=== PATIENT | female | born 1975 | race Caucasian/White ===

== ENCOUNTER 2021-10-17 12:37 | Emergency (ER) | payer SELFPAY ==
[2021-10-17 14:49] LABS: SARS-COV-2 RT PCR NEGATIVE (NEGATIVE)
--- NOTE | 2021-10-17 15:00 | EDPHYS ---
Physician Documentation [facility] Name: Cari Chen Age: 46 yrs Sex: Female : 1975 Arrival Date: 10/17/2021 Time: 12:40 Bed Waiting Private MD: ED Physician José Manuel Perez HPI: 10/17 15:24 This 46 yrs old Female presents to ER via Ambulatory with complaints of Chest kb Congestion, Breathing Difficulty. 15:24 The patient or guardian reports cough, that is intermittent, described as moderate, kb with no sputum. The patient has not experienced similar symptoms in the past. The patient has not recently seen a physician. 15:25 Onset: The symptoms/episode began/occurred 4 day(s) ago. Modifying factors: The kb symptoms are alleviated by nothing. the symptoms are aggravated by nothing. Associated signs and symptoms: Pertinent positives: rhinorrhea, Pertinent negatives: chest pain, diarrhea, ear ache, fever, nausea, sore throat, vomiting. Severity of symptoms: At their worst the symptoms were moderate in the emergency department the symptoms are unchanged. 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 Flu vaccine status is unknown. - Social history:: Smoking status: Patient denies any tobacco usage or history of. ROS: 15:14 Constitutional: Negative for fever, chills, and weight loss. kb 15:14 Respiratory: Positive for cough, Negative for dyspnea on exertion, hemoptysis, orthopnea, pleurisy, shortness of breath, sputum production, wheezing, acute changes. 15:14 All other systems are negative. 15:17 ENT: Positive for rhinorrhea. kb Exam: 15:17 Constitutional: This is a well developed, well nourished patient who is awake, alert, kb and in no acute distress. Head/Face: Normocephalic, atraumatic. ENT: Moist Mucous membranes Cardiovascular: Regular rate and rhythm with a normal S1 and S2. No gallops, murmurs, or rubs. No pulse deficits. Respiratory: Respirations even and unlabored. No increased work of breathing. Talking in full sentences Skin: Warm, dry with normal turgor. Normal color. MS/ Extremity: Pulses equal, no cyanosis. Neurovascular intact. Full, normal range of motion. Neuro: Awake and alert, GCS 15, oriented to person, place, time, and situation. Moves all extremities. Normal gait. Psych: Awake, alert, with orientation to person, place and time. Behavior, mood, and affect are within normal limits. Vital Signs: 13:42 BP 133 / 94; Pulse 84; Resp 18; Temp 97.7; Pulse Ox 100% ; Weight 90.72 kg; Height 5 ll1 ft. 7 in. (170.18 cm); Pain 6/10; 13:42 Body Mass Index 31.32 (90.72 kg, 170.18 cm) ll1 MDM: 13:48 Patient medically screened. kb 15:14 Data reviewed: vital signs, nurses notes. Data interpreted: Pulse oximetry: on room air kb is 100 %. Interpretation: normal. Counseling: I had a detailed discussion with the patient and/or guardian regarding: the historical points, exam findings, and any diagnostic results supporting the discharge/admit diagnosis, lab results, the need for outpatient follow up, a family practitioner, to return to the emergency department if symptoms worsen or persist or if there are any questions or concerns that arise at home. 10/17 13:46 Order name: COVID-19/FLU A+B (Document "Date of Onset" if Symptomatic); Complete Time: ll1 14:50 Administered Medications: No medications were administered Disposition Summary: 10/17/21 15:00 Discharge Ordered Location: Home kb Condition: Stable kb Diagnosis - Acute upper respiratory infection, unspecified kb Followup: kb - With: Emergency Department - When: As needed - Reason: Worsening of condition Followup: kb - With: Private Physician - When: 2 - 3 days - Reason: Recheck today's complaints, Continuance of care, Re-evaluation by your physician Discharge Instructions: - Discharge Summary Sheet kb - Upper Respiratory Infection, Adult, [id number] kb - Viral Respiratory Infection, [id number] kb Forms: - Medication Reconciliation Form kb - Thank You Letter kb - Antibiotic Education kb - Prescription Opioid Use kb - Work release form ll1 Prescriptions: - Prednisone 20 mg Oral Tablet - take 1 tablet by ORAL route once daily for 5 days; 5 tablet; Refills: 0, kb Product Selection Permitted - Tessalon Perles 100 mg Oral Capsule - take 1 capsule by ORAL route every 8 hours As needed; 15 capsule; Refills: 0, kb Product Selection Permitted Signatures: Dispatcher [employer] Landy Elise, TRAY FILLER-C TRAY FILLER-Matthew Negron, RN RN ll1
--- NOTE | 2021-10-17 15:00 | ER ---
Nurse's Notes [facility] Name: Cari Chen Age: 46 yrs Sex: Female : 1975 Arrival Date: 10/17/2021 Time: 12:40 Bed Waiting Private MD: Diagnosis: Acute upper respiratory infection, unspecified Presentation: 10/17 13:42 Chief complaint: Patient states: Cough, chest congestion, SOB for 4 days. No known ll1 fever. Coronavirus screen: Vaccine status: Patient reports being unvaccinated. Client denies travel out of the [place] in the last 14 days. cough unrelated to allergies, headache, Client presents with at least one sign or symptom that may indicate coronavirus-19. Standard/surgical mask placed on the client. Ebola Screen: Patient denies travel to an Ebola-affected area in the 21 days before illness onset. Initial Sepsis Screen: Does the patient meet any 2 criteria? No. Patient's initial sepsis screen is negative. Does the patient have a suspected source of infection? Yes: Productive cough/pneumonia. Risk Assessment: Do you want to hurt yourself or someone else? Patient reports no desire to harm self or others. Onset of symptoms was October 14, 2021. 13:42 Method Of Arrival: Ambulatory ll1 13:42 Acuity: VALERIE 3 ll1 Triage Assessment: 13:45 General: Appears ill, Behavior is calm, cooperative, appropriate for age. Pain: Denies ll1 pain. Neuro: No deficits noted. Cardiovascular: No deficits noted. Respiratory: Reports shortness of breath cough that is Airway is patent Trachea midline Respiratory effort is even, unlabored, Respiratory pattern is regular, symmetrical, Breath sounds are clear bilaterally. Onset: The symptoms/episode began/occurred yesterday, the patient has mild shortness of breath. 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 Flu vaccine status is unknown. - Social history:: Smoking status: Patient denies any tobacco usage or history of. Screenin:45 Abuse screen: Denies threats or abuse. Nutritional screening: No deficits noted. ll1 Tuberculosis screening: No symptoms or risk factors identified. Fall Risk Total Disla Fall Scale indicates No Risk (0-24 pts). Assessment: 14:45 Reassessment: No changes from previously documented assessment. Patient and/or family ll1 updated on plan of care and expected duration. Pain level reassessed. Patient is alert, oriented x 3, equal unlabored respirations, skin warm/dry/pink. Cardiovascular: Rhythm is regular. Respiratory: Airway is patent Respiratory effort is even, unlabored, Breath sounds are clear bilaterally. Vital Signs: 13:42 BP 133 / 94; Pulse 84; Resp 18; Temp 97.7; Pulse Ox 100% ; Weight 90.72 kg; Height 5 ll1 ft. 7 in. (170.18 cm); Pain 6/10; 13:42 Body Mass Index 31.32 (90.72 kg, 170.18 cm) ll1 ED Course: 12:40 Patient arrived in ED. ds1 13:44 Triage completed. ll1 13:44 Arm band placed on. ll1 13:45 Patient has correct armband on for positive identification. Cardiac monitoring not ll1 applicable on this patient. 13:45 No provider procedures requiring assistance completed. Patient did not have IV access ll1 during this emergency room visit. 13:47 Landy Mcfadden FNP-C is [facility]. kb 13:47 José Manuel Perez MD is Attending Physician. kb Administered Medications: No medications were administered Outcome: 15:00 Discharge ordered by . kb 15:15 Patient left the ED. ll1 15:15 Discharged to home ambulatory. ll1 15:15 Condition: stable 15:15 Discharge instructions given to patient, Instructed on discharge instructions, follow up and referral plans. medication usage, Demonstrated understanding of instructions, follow-up care, medications, Prescriptions given X 2. Signatures: Landy Mcfadden FNP-C BEVELER-Michelle Schwarz ds1 Matthew sU RN RN ll1
[2021-10-17 15:20] VITALS: BP 133/94; TEMP 97.7; O2SAT 100
== END 2021-10-17 15:15 | disposition home or self-care (01) ==
LOC: ER 12:37
DX: J06.9 Acute upper respiratory infection, unspecified (principal); Z20.822 Contact with and (suspected) exposure to COVID-19
CPT/HCPCS: 0240U; 99282

== ENCOUNTER 2021-10-23 11:04 | Emergency (ER) | payer SELFPAY ==
--- NOTE | 2021-10-23 14:06 | RAD REPORT ---
EXAM DESCRIPTION: RAD - Chest Single View - 10/23/2021 11:58 am CLINICAL HISTORY: COUGH, congestion COMPARISON: February 2016 TECHNIQUE: AP portable chest image was obtained 10/23/2021 11:58 am . FINDINGS: Lung volumes are low. Minimal stranding at the left base is more likely atelectasis than i nfiltrate. No failure or volume overload. Heart and vasculature are normal. No measurable pleural effusion and no pneumothorax. No acute bony abnormality seen. No acute aortic findings suspected. IMPRESSION: Limited study without acute cardiopulmonary finding. Left base stranding favored to be atelectasis rather than infiltrate.
--- NOTE | 2021-10-23 14:42 | EDPHYS ---
Physician Documentation [facility] Name: Cari Chen Age: 46 yrs Sex: Female : 1975 Arrival Date: 10/23/2021 Time: 11:11 Bed Treatment Private MD: ED Physician Roger Sotomayor HPI: 10/23 14:40 This 46 yrs old Female presents to ER via Ambulatory with complaints of Cough and pm1 Shortness Of Breath. 14:40 The patient or guardian reports cough. Onset: The symptoms/episode began/occurred 1 pm1 week(s) ago. Severity of symptoms: in the emergency department the symptoms are unchanged. Modifying factors: The symptoms are alleviated by nothing, the symptoms are aggravated by nothing. Associated signs and symptoms: Pertinent negatives: chest pain, diarrhea, fever, sore throat, vomiting. The patient has not experienced similar symptoms in the past. The patient has been recently seen at the [facility] Emergency Department, last week, for similar complaints labs were performed, given steroid treatment. 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 - Social history:: Smoking status: Patient denies any tobacco usage or history of. ROS: 14:40 Constitutional: Negative for fever, chills, and weight loss, ENT: Negative for injury, pm1 pain, and discharge, Cardiovascular: Negative for chest pain, palpitations, and edema. 14:40 Abdomen/GI: Negative for abdominal pain, nausea, vomiting, diarrhea, and constipation, Back: Negative for injury and pain, MS/Extremity: Negative for injury and deformity, Skin: Negative for injury, rash, and discoloration. 14:40 Respiratory: Positive for cough, shortness of breath. 14:40 Neuro: Positive for headache. 14:40 All other systems are negative. Exam: 14:40 Constitutional: This is a well developed, well nourished patient who is awake, alert, pm1 and in no acute distress. Head/Face: Normocephalic, atraumatic. 14:40 Cardiovascular: Regular rate and rhythm with a normal S1 and S2. No gallops, murmurs, or rubs. Normal PMI, no JVD. No pulse deficits. Respiratory: Lungs have equal breath sounds bilaterally, clear to auscultation and percussion. No rales, rhonchi or wheezes noted. No increased work of breathing, no retractions or nasal flaring. 14:40 Back: No spinal tenderness. No costovertebral tenderness. Full range of motion. Skin: Warm, dry with normal turgor. Normal color with no rashes, no lesions, and no evidence of cellulitis. MS/ Extremity: Pulses equal, no cyanosis. Neurovascular intact. Full, normal range of motion. 14:40 Eyes: Exam is negative for acute changes, Periorbital structures: appear normal, Pupils: no acute changes, Extraocular movements: no acute changes, Conjunctiva: no acute changes, no injection. 14:40 Abdomen/GI: Exam negative for acute changes, Inspection: abdomen appears normal, Palpation: abdomen is soft and non-tender, in all quadrants. 14:40 Neuro: Exam negative for acute changes, Orientation: is normal, Mentation: is normal, Motor: is normal, moves all fours. Vital Signs: 11:42 BP 148 / 82; Pulse 87; Resp 16; Temp 98.6; Pulse Ox 100% on R/A; Weight 90.72 kg; iw Height 5 ft. 7 in. (170.18 cm); 15:44 BP 138 / 79; Pulse 77; Resp 18 S; Pulse Ox 98% on R/A; al4 11:42 Body Mass Index 31.32 (90.72 kg, 170.18 cm) MDM: 13:49 Patient medically screened. [facility] 14:40 Data reviewed: vital signs. Data interpreted: Pulse oximetry: on room air is 100 %. pm1 Interpretation: normal. Counseling: I had a detailed discussion with the patient and/or guardian regarding: the historical points, exam findings, and any diagnostic results supporting the discharge/admit diagnosis, radiology results, the need for outpatient follow up, to return to the emergency department if symptoms worsen or persist or if there are any questions or concerns that arise at home. 10/23 11:44 Order name: CXR XRAY; Complete Time: 14:14 iw Administered Medications: No medications were administered Disposition: 10/24 04:38 Co-signature as Attending Physician, Roger Sotomayor MD I agree with the assessment and izabel plan of care. Disposition Summary: 10/23/21 14:41 Discharge Ordered Location: Home pm1 Problem: new pm1 Symptoms: have improved pm1 Condition: Stable pm1 Diagnosis - Acute upper respiratory infection, unspecified pm1 Followup: pm1 - With: Emergency Department - When: As needed - Reason: Worsening of condition Followup: pm1 - With: Private Physician - When: 2 - 3 days - Reason: Recheck today's complaints, Continuance of care, Re-evaluation by your physician Discharge Instructions: - Discharge Summary Sheet pm1 - Upper Respiratory Infection, Adult pm1 Forms: - Medication Reconciliation Form pm1 - Thank You Letter pm1 - Antibiotic Education pm1 - Prescription Opioid Use pm1 Prescriptions: - Ventolin HFA 90 mcg/actuation Inhalation HFA aerosol inhaler - inhale 1 puff by INHALATION route every 4-6 hours As needed; 1 Inhaler; pm1 Refills: 0, Product Selection Permitted - Medrol (Gurdeep) 4 mg Oral Tablets, Dose Pack - take 1 tablet by ORAL route as directed - follow package instructions; 1 pm1 packet; Refills: 0, Product Selection Permitted - Guaifenesin AC 10-100 mg/5 mL Oral Liquid - take 10 milliliters by ORAL route every 4 hours As needed; 240 milliliter; pm1 Refills: 0, Product Selection Permitted Signatures: Dispatcher [employer] Roger Bishop MD MD cha Williams, Irene, RN RN Emmanuel Urban, PAZ PAGE TECHNICIAN pm1
--- NOTE | 2021-10-23 14:42 | ER ---
Nurse's Notes [facility] Name: Cari Chen Age: 46 yrs Sex: Female : 1975 Arrival Date: 10/23/2021 Time: 11:11 Bed Treatment Private MD: Diagnosis: Acute upper respiratory infection, unspecified Presentation: 10/23 11:42 Chief complaint: Patient states: was seen here the day after Elissa, was diagnosed iw with URI, has been taking prednisone , still has a cough and headache. Coronavirus screen: Client presents with at least one sign or symptom that may indicate coronavirus-19. Ebola Screen: Patient negative for fever greater than or equal to 101.5 degrees Fahrenheit, and additional compatible Ebola Virus Disease symptoms Patient denies exposure to infectious person. Patient denies travel to an Ebola-affected area in the 21 days before illness onset. No symptoms or risks identified at this time. Initial Sepsis Screen: Does the patient meet any 2 criteria? No. Patient's initial sepsis screen is negative. Does the patient have a suspected source of infection? No. Patient's initial sepsis screen is negative. Risk Assessment: Do you want to hurt yourself or someone else? Patient reports no desire to harm self or others. Onset of symptoms was October 15, 2021. 11:42 Method Of Arrival: Ambulatory iw 11:42 Acuity: VALERIE 3 iw GLOVE BRUSHER: 15:44 unknown al4 Historical: - Allergies: 11:43 No Known Allergies; iw - Home Meds: 11:43 None [Active]; iw - PMHx: 11:43 None; iw - PSHx: 11:43 None; iw - Immunization history:: Client reports having NOT received the Covid vaccine. - Social history:: Smoking status: Patient denies any tobacco usage or history of. Screenin:43 Abuse screen: Denies threats or abuse. Nutritional screening: No deficits noted. al4 Tuberculosis screening: No symptoms or risk factors identified. Fall Risk None identified. Assessment: 15:41 General: Appears in no apparent distress. comfortable, Behavior is calm, cooperative, al4 patient complains of pain 8/10 in chest "from coughing" and left side behind ear also "from coughing." Patient denies SOB, head congestion, and n/v/d. Pain: Pain currently is 8 out of 10 on a pain scale. Neuro: Level of Consciousness is awake, alert, obeys commands, Oriented to person, place, time. Cardiovascular: Capillary refill < 3 seconds Patient's skin is warm and dry. Respiratory: Airway is patent Respiratory effort is even, unlabored, Respiratory pattern is regular, symmetrical. GI: No signs and/or symptoms were reported involving the gastrointestinal system. : No signs and/or symptoms were reported regarding the genitourinary system. EENT: No signs and/or symptoms were reported regarding the EENT system. Derm: No signs and/or symptoms reported regarding the dermatologic system. Musculoskeletal: No signs and/or symptoms reported regarding the musculoskeletal system. Vital Signs: 11:42 BP 148 / 82; Pulse 87; Resp 16; Temp 98.6; Pulse Ox 100% on R/A; Weight 90.72 kg; iw Height 5 ft. 7 in. (170.18 cm); 15:44 BP 138 / 79; Pulse 77; Resp 18 S; Pulse Ox 98% on R/A; al4 11:42 Body Mass Index 31.32 (90.72 kg, 170.18 cm) ED Course: 11:11 Patient arrived in ED. ds1 11:43 Triage completed. iw 11:44 Arm band placed on. EKG completed in triage. Results shown to MD. iw 11:54 X-ray completed. Portable x-ray completed in exam room. ls3 11:58 CXR XRAY In Process Unspecified. EDMS 13:48 Emmanuel Hwang NP is PHCP. pm1 13:48 Roger Sotomayor MD is Attending Physician. pm1 14:08 Rosita Carter RN is Primary Nurse. iw 15:43 Patient has correct armband on for positive identification. al4 15:43 No provider procedures requiring assistance completed. Patient did not have IV access al4 during this emergency room visit. Administered Medications: No medications were administered Outcome: 14:41 Discharge ordered by MD. pm1 15:43 Discharged to home ambulatory. al4 15:43 Condition: stable 15:43 Discharge instructions given to patient. 15:51 Patient left the ED. al4 Signatures: Dispatcher [employer] [facility] LeeEliudi ds1 Rosita Carter RN RN iw Emmanuel Hwang NP HOUSE PIPING INSPECTOR pm1 Wendy Ding ls3 Hero, Winston al4
[2021-10-23 15:55] VITALS: TEMP 98.6
[2021-10-23 15:57] VITALS: BP 138/79; O2SAT 98
== END 2021-10-23 15:51 | disposition home or self-care (01) ==
LOC: ER 11:04
DX: J06.9 Acute upper respiratory infection, unspecified (principal)
CPT/HCPCS: 71045; 99283

== ENCOUNTER 2021-12-01 10:57 | Emergency (ER) | payer SELFPAY ==
[2021-12-01 12:29] LABS: SARS-COV-2 RT PCR POSITIVE (NEGATIVE)
--- NOTE | 2021-12-01 12:33 | EDPHYS ---
Physician Documentation [facility] Name: Cari Chen Age: 46 yrs Sex: Female : 1975 Arrival Date: 12/01/2021 Time: 10:58 Bed 11 Private MD: ED Physician Roger Sotomayor HPI: 12/01 12:01 This 46 yrs old Female presents to ER via Ambulatory with complaints of Fever, Sore kb Throat, bodyaches. 12:01 The patient or guardian reports cough, that is intermittent, described as mild, flu kb symptoms, low-grade fever, myalgias. Onset: The symptoms/episode began/occurred 3 day(s) ago. Severity of symptoms: At their worst the symptoms were moderate, in the emergency department the symptoms are unchanged. Modifying factors: The symptoms are alleviated by nothing, the symptoms are aggravated by nothing. Associated signs and symptoms: Pertinent positives: fever, sore throat. The patient has not experienced similar symptoms in the past. The patient has not recently seen a physician. 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 - Social history:: Smoking status: Patient denies any tobacco usage or history of. ROS: 12:00 Cardiovascular: Negative for chest pain, palpitations, and edema. kb 12:00 Constitutional: Positive for body aches, chills, fatigue, fever, malaise. 12:00 ENT: Positive for sinus congestion, sore throat. 12:00 Respiratory: Positive for cough, Negative for dyspnea on exertion, hemoptysis, orthopnea, pleurisy, shortness of breath, sputum production, wheezing. 12:00 All other systems are negative. Exam: 12:00 Constitutional: This is a well developed, well nourished patient who is awake, alert, kb and in no acute distress. Head/Face: Normocephalic, atraumatic. ENT: Moist Mucous membranes Respiratory: Respirations even and unlabored. No increased work of breathing. Talking in full sentences Skin: Warm, dry with normal turgor. Normal color. MS/ Extremity: Pulses equal, no cyanosis. Neurovascular intact. Full, normal range of motion. Neuro: Awake and alert, GCS 15, oriented to person, place, time, and situation. Moves all extremities. Normal gait. Psych: Awake, alert, with orientation to person, place and time. Behavior, mood, and affect are within normal limits. Vital Signs: 11:03 BP 125 / 89; Pulse 87; Resp 17; Temp 98.7; Pulse Ox 98% ; Weight 90.72 kg; Height 5 ft. vg1 7 in. (170.18 cm); Pain 5/10; 12:41 BP 121 / 73; Pulse 79; Resp 16; Pulse Ox 99% on R/A; ab2 11:03 Body Mass Index 31.32 (90.72 kg, 170.18 cm) vg1 MDM: 11:00 Patient medically screened. kb 12:00 Data reviewed: vital signs, nurses notes. Data interpreted: Pulse oximetry: on room air kb is 98 %. Interpretation: normal. 12:32 Counseling: I had a detailed discussion with the patient and/or guardian regarding: the kb historical points, exam findings, and any diagnostic results supporting the discharge/admit diagnosis, lab results, radiology results, the need for outpatient follow up, a family practitioner, to return to the emergency department if symptoms worsen or persist or if there are any questions or concerns that arise at home. 12/01 11:00 Order name: Strep; Complete Time: 12:06 kb 12/01 11:00 Order name: COVID-19/FLU A+B (Document "Date of Onset" if Symptomatic); Complete Time: kb 12:29 12/01 12:05 Order name: Throat Culture EDMS Administered Medications: No medications were administered Disposition: 15:44 Co-signature as Attending Physician, Roger Sotomayor MD I agree with the assessment and izabel plan of care. Disposition Summary: 12/01/21 12:32 Discharge Ordered Location: Home Condition: Stable kb Diagnosis - Coronavirus infection, unspecified kb Followup: kb - With: Emergency Department - When: As needed - Reason: Worsening of condition Followup: kb - With: Private Physician - When: 2 - 3 days - Reason: Recheck today's complaints, Continuance of care, Re-evaluation by your physician Discharge Instructions: - Discharge Summary Sheet kb - Viral Respiratory Infection, [id number] kb - COVID-19 kb Forms: - Medication Reconciliation Form kb - Thank You Letter kb - Antibiotic Education kb - Prescription Opioid Use kb Signatures: Dispatcher [employer] Landy Elise, TITLE ASSISTANT-C KATHI-Roger Marrufo MD MD cha Garcia, Victoria, RN RN vg1
--- NOTE | 2021-12-01 12:33 | ER ---
Nurse's Notes [facility] Name: Cari Chen Age: 46 yrs Sex: Female : 1975 Arrival Date: 12/01/2021 Time: 10:58 Bed 11 Private MD: Diagnosis: Coronavirus infection, unspecified Presentation: 12/01 11:03 Chief complaint: Patient states: fever yesterday of 102., cough, congestion, body aches vg1 and sore throat since x 2 days. Coronavirus screen: Vaccine status: Patient reports being unvaccinated. Client denies travel out of the [place] in the last 14 days. Ebola Screen: Patient negative for fever greater than or equal to 101.5 degrees Fahrenheit, and additional compatible Ebola Virus Disease symptoms. Initial Sepsis Screen: Does the patient meet any 2 criteria? No. Patient's initial sepsis screen is negative. Does the patient have a suspected source of infection? No. Patient's initial sepsis screen is negative. Risk Assessment: Do you want to hurt yourself or someone else? Patient reports no desire to harm self or others. Onset of symptoms was November 29, 2021. 11:03 Method Of Arrival: Ambulatory vg1 11:03 Acuity: VALERIE 4 vg1 Triage Assessment: 11:06 General: Appears uncomfortable, Behavior is calm, cooperative. Pain: Complains of pain vg1 in generalized body Pain currently is 5 out of 10 on a pain scale. EENT: Throat is clear. 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 - Social history:: Smoking status: Patient denies any tobacco usage or history of. Screenin:20 Abuse screen: Denies threats or abuse. Denies injuries from another. Nutritional ab2 screening: No deficits noted. Tuberculosis screening: No symptoms or risk factors identified. Fall Risk None identified. Assessment: 11:19 General: Appears in no apparent distress. comfortable, Behavior is calm, cooperative, ab2 appropriate for age. Pain: Complains of pain in full body aches Pain does not radiate. Neuro: No deficits noted. Level of Consciousness is awake, alert, obeys commands, Oriented to person, place, time, situation, Appropriate for age Cryptoanalysis Teacher are equal bilaterally Moves all extremities. Gait is steady, Speech is normal, Facial symmetry appears normal. Cardiovascular: No deficits noted. Denies chest pain, Heart tones S1 S2 present Patient's skin is warm and dry. Respiratory: Reports cough that is Airway is patent Respiratory effort is even, unlabored, Respiratory pattern is regular, symmetrical, Breath sounds are clear bilaterally. GI: No deficits noted. No signs and/or symptoms were reported involving the gastrointestinal system. Abdomen is round non-distended. : No deficits noted. No signs and/or symptoms were reported regarding the genitourinary system. EENT: No deficits noted. No signs and/or symptoms were reported regarding the EENT system. Derm: No deficits noted. No signs and/or symptoms reported regarding the dermatologic system. Skin is intact, is healthy with good turgor, Skin is dry, Skin is pink, warm \\T\\ dry. Skin temperature is warm. Musculoskeletal: No deficits noted. No signs and/or symptoms reported regarding the musculoskeletal system. Vital Signs: 11:03 BP 125 / 89; Pulse 87; Resp 17; Temp 98.7; Pulse Ox 98% ; Weight 90.72 kg; Height 5 ft. vg1 7 in. (170.18 cm); Pain 5/10; 12:41 BP 121 / 73; Pulse 79; Resp 16; Pulse Ox 99% on R/A; ab2 11:03 Body Mass Index 31.32 (90.72 kg, 170.18 cm) vg1 ED Course: 10:58 Patient arrived in ED. am2 10:59 [facility] Mc[facility]add[facility]C [facility] kb 11:00 Roger Sotomayor MD is Attending Physician. kb 11:06 Triage completed. vg1 11:06 Arm band placed on. vg1 11:15 Winston Ma is Primary Nurse. ab2 11:18 COVID-19/FLU A+B (Document "Date of Onset" if Symptomatic) Sent. ab2 11:18 Strep Sent. ab2 11:20 Patient has correct armband on for positive identification. Bed in low position. Call ab2 light in reach. Side rails up X2. 11:20 No provider procedures requiring assistance completed. ab2 12:41 Patient did not have IV access during this emergency room visit. ab2 Administered Medications: No medications were administered Outcome: 12:32 Discharge ordered by . lynn 12:41 Discharged to home ambulatory. ab2 12:41 Condition: good 12:41 Discharge instructions given to patient, Instructed on discharge instructions, follow up and referral plans. Demonstrated understanding of instructions, follow-up care. 12:41 Patient left the ED. ab2 Signatures: Landy Mcfadden, GLASS INSPECTOR-C GLASS INSPECTOR-Darlyn Banda am2 Chloe Johnston, RN RN vg1 Winston Ma ab2
[2021-12-01 13:28] VITALS: TEMP 98.7
[2021-12-01 13:29] VITALS: BP 121/73; O2SAT 99
== END 2021-12-01 12:41 | disposition home or self-care (01) ==
LOC: ER 10:57
DX: U07.1 COVID-19 (principal)
CPT/HCPCS: 0240U; 87070; 87081; 99283

== ENCOUNTER 2023-04-10 08:48 | Emergency (ER) | payer SELFPAY ==
[2023-04-10] MEDS ORDERED: IPRATROPIUM BROM 0.5MG/2.5ML ONE (09:10)
[2023-04-10] MEDS ORDERED: ALBUTEROL 2.5 MG/3 ML NEB SOL ONE (09:10)
[2023-04-10] MEDS ORDERED: BENZONATATE 100 MG CAP PO ONE (09:10)
[2023-04-10 09:37] LABS: SARS-CoV-2 Antigen Rapid Res Negative (Negative)
--- NOTE | 2023-04-10 09:41 | RAD REPORT ---
EXAM DESCRIPTION: Terry Single View04/10/2023 9:27 am CLINICAL HISTORY: Cough COMPARISON: 2021 FINDINGS: The lungs appear clear of acute infiltrate. The heart is normal size IMPRESSION: No acute abnormalities displayed
--- NOTE | 2023-04-10 10:11 | EDPHYS ---
Physician Documentation [facility] Name: Cari Chen Age: 47 yrs Sex: Female : 1975 Arrival Date: 04/10/2023 Time: 08:48 Bed 7 Private MD: ED Physician Vic Rich HPI: 04/10 09:00 This 47 yrs old Female presents to ER via Ambulatory with complaints of Chest sp3 Congestion. 09:00 47-year-old female with no significant past medical history presents to the ED with a sp3 chief complaint of 1 week of cough, congestion, upper respiratory symptoms. She denies fever, headache, neck pain, chest pain, shortness of breath, abdominal pain, nausea, vomiting, diarrhea, rash, known sick contacts, travel history, or any other signs or symptoms at this time. No prior history of pneumonia, pulmonary embolism, any other pulmonary pathology. She denies smoking or any recreational drug usage.. Historical: - Allergies: 08:58 No Known Allergies; aa5 - Home Meds: 08:58 None [Active]; aa5 - PMHx: 08:58 None; aa5 - PSHx: 08:58 None; aa5 - Immunization history:: Adult Immunizations unknown. - Social history:: Smoking status: Patient denies any tobacco usage or history of. ROS: 09:01 Constitutional: Negative for fever, chills, and weight loss, Eyes: Negative for injury, sp3 pain, redness, and discharge, ENT: Negative for injury, pain, and discharge, Neck: Negative for injury, pain, and swelling, Cardiovascular: Negative for chest pain, palpitations, and edema, Abdomen/GI: Negative for abdominal pain, nausea, vomiting, diarrhea, and constipation, Back: Negative for injury and pain, MS/Extremity: Negative for injury and deformity, Skin: Negative for injury, rash, and discoloration, Neuro: Negative for headache, weakness, numbness, tingling, and seizure, Psych: Negative for depression, anxiety, suicide ideation, homicidal ideation, and hallucinations, Allergy/Immunology: Negative for hives, rash, and allergies, Endocrine: Negative for neck swelling, polydipsia, polyuria, polyphagia, and marked weight changes, Hematologic/Lymphatic: Negative for swollen nodes, abnormal bleeding, and unusual bruising. 09:01 All other systems are negative. Exam: 09:02 Constitutional: This is a well developed, well nourished patient who is awake, alert, sp3 and in no acute distress. Head/Face: Normocephalic, atraumatic. Eyes: Pupils equal round and reactive to light, extra-ocular motions intact. Lids and lashes normal. Conjunctiva and sclera are non-icteric and not injected. Cornea within normal limits. Periorbital areas with no swelling, redness, or edema. ENT: Nares patent. No nasal discharge, no septal abnormalities noted. External auditory canals are clear. Oropharynx with no redness, swelling, or masses, exudates, or evidence of obstruction, uvula midline. Mucous membranes moist. Neck: Trachea midline, no thyromegaly or masses palpated, and no cervical lymphadenopathy. Supple, full range of motion without nuchal rigidity, or vertebral point tenderness. No Meningismus. Chest/axilla: Normal chest wall appearance and motion. Nontender with no deformity. No lesions are appreciated. Cardiovascular: Regular rate and rhythm with a normal S1 and S2. No gallops, murmurs, or rubs. Normal PMI, no JVD. No pulse deficits. Abdomen/GI: Soft, non-tender, with normal bowel sounds. No distension or tympany. No guarding or rebound. No evidence of tenderness throughout. Back: No spinal tenderness. No costovertebral tenderness. Full range of motion. Skin: Warm, dry with normal turgor. Normal color with no rashes, no lesions, and no evidence of cellulitis. MS/ Extremity: Pulses equal, no cyanosis. Neurovascular intact. Full, normal range of motion. Neuro: Awake and alert, GCS 15, oriented to person, place, time, and situation. Cranial nerves II-XII grossly intact. Motor strength 5/5 in all extremities. Sensory grossly intact. Cerebellar exam normal. Normal gait. Psych: Awake, alert, with orientation to person, place and time. Behavior, mood, and affect are within normal limits. 09:02 Chest/axilla: Scattered wheezes noted. Active cough noted.. Vital Signs: 08:55 BP 139 / 94; Pulse 84; Resp 18 S; Temp 98.7(O); Pulse Ox 97% on R/A; aa5 10:05 BP 140 / 79; Pulse 85; Resp 19 S; Pulse Ox 99% on R/A; kc6 MDM: 08:55 Patient medically screened. sp3 09:02 Data reviewed: vital signs, nurses notes, lab test result(s), radiologic studies. ED sp3 course: 47-year-old female with no past medical history presents with upper respiratory symptoms differential diagnosis includes bronchitis, pneumonia, influenza, COVID-19, other viral upper respiratory infection. Will obtain chest x-ray, flu screen, rapid COVID. Treatment will include nebulizer of albuterol and Atrovent and Tessalon Perles p.o. Likely discharge home on supportive treatment for possible antibiotic.. 09:29 ED course: . sp3 10:09 ED course: Chest x-ray is negative and labs demonstrate no flu or COVID. Patient is sp3 improved and we will safely discharge her home on Zithromax and inhaler.. 04/10 09:00 Order name: Flu; Complete Time: 10:09 sp3 04/10 09:00 Order name: SARS RAPID; Complete Time: 10:09 sp3 04/10 08:58 Order name: CXR XRAY; Complete Time: 10:09 sp3 Administered Medications: 09:08 Drug: DuoNeb Nebulize (2.5 mg - 0.5 mg) 3 ml Route: Nebulizer; kc6 09:39 Follow up: Response: No adverse reaction; Wheezing diminished kc6 09:08 Drug: Tessalon Perle PO 200 mg Route: PO; kc6 09:39 Follow up: Response: No adverse reaction kc6 Disposition Summary: 04/10/23 10:10 Discharge Ordered Location: Home sp3 Condition: Stable sp3 Diagnosis - Bronchitis sp3 Followup: sp3 - With: Private Physician - When: Upon discharge from the Emergency Department - Reason: Recheck today's complaints Discharge Instructions: - Discharge Summary Sheet sp3 - Acute Bronchitis, Adult sp3 Forms: - Medication Reconciliation Form sp3 - Thank You Letter sp3 - Antibiotic Education sp3 - Prescription Opioid Use sp3 Prescriptions: - Combivent Respimat 20-100 mcg/actuation Inhalation Mist - administer 2 puff by INHALATION route once administer with spacer; 2 puffs sp3 every 6 hours as needed wheezing; 1 Applicator; Refills: 0, Product Selection Permitted - Tessalon Perles 100 mg Oral Capsule - take 1 capsule by ORAL route every 8 hours As needed; 15 capsule; Refills: 0, sp3 Product Selection Permitted - Zithromax Z-Gurdeep 250 mg Oral Tablet - take 1 tablet by ORAL route as directed for 5 days Day 1 - take two (2) tablets sp3 one time. Day 2, 3, 4 , 5 take one (1) tablet once daily.; 6 tablet; Refills: 0, Product Selection Permitted Signatures: Dispatcher [employer] EDMS Greer Draper RN RN aa5 Vic Rich MD MD sp3 Yessi Sanches RN RN kc6 Corrections: (The following items were deleted from the chart) 09:30 09:29 ED course: CT scan demonstrates no acute abnormality. Lipase level is just over sp3 200 with baseline levels in the 80-90 range. We will administer second liter of normal saline and additional pain medication and safely discharge patient home.. sp3
--- NOTE | 2023-04-10 10:11 | ER ---
Nurse's Notes [facility] Name: Cari Chen Age: 47 yrs Sex: Female : 1975 Arrival Date: 04/10/2023 Time: 08:48 Bed 7 Private MD: Diagnosis: Bronchitis Presentation: 04/10 08:55 Chief complaint: Patient states: chest congestion and cough that began 1 week ago. aa5 Denies fever. 08:55 Acuity: VALERIE 3 aa5 08:55 Coronavirus screen: At this time, the client does not indicate any symptoms associated aa5 with coronavirus-19. Ebola Screen: Patient denies travel to an Ebola-affected area in the 21 days before illness onset. Initial Sepsis Screen: Does the patient meet any 2 criteria? No. Patient's initial sepsis screen is negative. Does the patient have a suspected source of infection? No. Patient's initial sepsis screen is negative. Risk Assessment: Do you want to hurt yourself or someone else? Patient reports no desire to harm self or others. Onset of symptoms was March 2023. 08:55 Method Of Arrival: Ambulatory aa5 Historical: - Allergies: 08:58 No Known Allergies; aa5 - Home Meds: 08:58 None [Active]; aa5 - PMHx: 08:58 None; aa5 - PSHx: 08:58 None; aa5 - Immunization history:: Adult Immunizations unknown. - Social history:: Smoking status: Patient denies any tobacco usage or history of. Screenin:55 [facility] ED Fall Risk Assessment (Adult) History of falling in the last 3 months, kc6 including since admission No falls in past 3 months (0 pts) Confusion or Disorientation No (0 pts) Intoxicated or Sedated No (0 pts) Impaired Gait No (0 pts) Mobility Assist Device Used No (0 pt) Altered Elimination No (0 pt) Score/Fall Risk Level 0 - 2 = Low Risk Oriented to surroundings, Maintained a safe environment, Educated pt \T\ family on fall prevention, incl call for assistance when getting out of bed, Assessed \T\ reinforced patient's understanding of fall precautions, Hourly rounding (assess needs \T\ fall precautionary measures) done. Abuse screen: Denies threats or abuse. Denies injuries from another. Nutritional screening: No deficits noted. Tuberculosis screening: No symptoms or risk factors identified. Assessment: 08:55 General: Appears in no apparent distress. distressed, ill, Behavior is calm, kc6 cooperative, appropriate for age. Pain: Denies pain. Neuro: Level of Consciousness is awake, alert, obeys commands, Oriented to person, place, time, situation, Appropriate for age. Cardiovascular: Capillary refill < 3 seconds. Respiratory: Reports cough that is non-productive, Airway is compromised Trachea midline Respiratory effort is even, unlabored, Respiratory pattern is regular, symmetrical, Breath sounds with wheezes. GI: No signs and/or symptoms were reported involving the gastrointestinal system. : No signs and/or symptoms were reported regarding the genitourinary system. EENT: Reports nasal congestion. Derm: No signs and/or symptoms reported regarding the dermatologic system. Skin is intact, Skin is pink, warm \T\ dry. Musculoskeletal: No signs and/or symptoms reported regarding the musculoskeletal system. Circulation, motion, and sensation intact. Capillary refill < 3 seconds, Range of motion: intact in all extremities. 09:55 Reassessment: Patient appears in no apparent distress at this time. No changes from kc6 previously documented assessment. Patient and/or family updated on plan of care and expected duration. Pain level reassessed. Patient is alert, oriented x 3, equal unlabored respirations, skin warm/dry/pink. Vital Signs: 08:55 BP 139 / 94; Pulse 84; Resp 18 S; Temp 98.7(O); Pulse Ox 97% on R/A; aa5 10:05 BP 140 / 79; Pulse 85; Resp 19 S; Pulse Ox 99% on R/A; kc6 ED Course: 08:49 Patient arrived in ED. im 08:54 Vic Rich MD is Attending Physician. sp3 08:55 Yessi Sanches, TUCKER is Primary Nurse. kc6 08:55 Patient has correct armband on for positive identification. Bed in low position. Call kc6 light in reach. Side rails up X 1. 08:55 Arm band placed on. kc6 09:00 Triage completed. aa5 09:08 Flu Sent. kc6 09:08 SARS RAPID Sent. kc6 09:28 CXR XRAY In Process Unspecified. EDMS 10:24 No provider procedures requiring assistance completed. Patient did not have IV access kc6 during this emergency room visit. Administered Medications: 09:08 Drug: DuoNeb Nebulize (2.5 mg - 0.5 mg) 3 ml Route: Nebulizer; kc6 09:39 Follow up: Response: No adverse reaction; Wheezing diminished kc6 09:08 Drug: Tessalon Perle PO 200 mg Route: PO; kc6 09:39 Follow up: Response: No adverse reaction kc6 Medication: 10:24 VIS not applicable for this client. kc6 Outcome: 10:10 Discharge ordered by . sp3 10:24 Discharged to home ambulatory. kc6 10:24 Condition: stable 10:24 Discharge instructions given to patient, Instructed on discharge instructions, follow up and referral plans. medication usage, Demonstrated understanding of instructions, follow-up care, medications, Prescriptions given X 3. 10:25 Patient left the ED. kc6 Signatures: Dispatcher [employer] EDGreer Duffy, RN RN aa5 Vic Rich MD MD sp3 Yessi Sanches RN RN kc6 Anita Herr Corrections: (The following items were deleted from the chart) 08:57 08:55 Respiratory: Reports cough that is non-productive, Airway is compromised Trachea kc6 midline Respiratory effort is even, unlabored, Respiratory pattern is regular, symmetrical, kc6
[2023-04-10 10:31] VITALS: TEMP 98.7
[2023-04-10 10:32] VITALS: BP 140/79; O2SAT 99
== END 2023-04-10 10:25 | disposition home or self-care (01) ==
LOC: ER 08:48
DX: J40 Bronchitis, not specified as acute or chronic (principal); Z20.822 Contact with and (suspected) exposure to COVID-19
CPT/HCPCS: 36415; 71045; 87804; 87811; 94640; 99284; J7613; J7644

== ENCOUNTER → 2023-11-09 | Emergency (ER) | payer SELFPAY ==
[2023-11-09 10:28] LABS: SARS-CoV-2 Antigen Rapid Res Positive (Negative)
--- NOTE | 2023-11-09 10:46 | EDPHYS ---
Physician Documentation [facility] Name: Cari Chen Age: 48 yrs Sex: Female : 1975 Arrival Date: 11/09/2023 Time: 09:32 Bed 5 Private MD: ED Physician John Xie HPI: 11/09 09:56 This 48 yrs old Female presents to ER via Ambulatory with complaints of Flu Symptoms. ci 09:56 Patient is a 48-year-old female with no significant PMH who presents to the ED with ci chief complaint of sore throat, body aches, nasal congestion that began about 4 days ago. Patient reports her grandkids have strep throat. Endorses low-grade fever few days ago. She denies any cough, neck pain, chest pain, shortness of breath, palpitations.. 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 - Social history:: Smoking status: Patient denies any tobacco usage or history of. ROS: 09:56 Constitutional: Positive for body aches, chills, fatigue, fever, ci 09:56 Eyes: Negative for discharge, swelling, visual disturbance, 09:56 ENT: Positive for nasal discharge, sinus congestion, sore throat, Negative for 09:56 Neck: Negative for pain with movement, swelling, tenderness, 09:56 Cardiovascular: Negative for chest pain, orthopnea, palpitations, 09:56 Respiratory: Negative for cough, shortness of breath, sputum production, wheezing, 09:56 Abdomen/GI: Negative for abdominal pain, nausea, vomiting, and diarrhea, 09:56 Neuro: Negative for altered mental status, syncope, weakness, Exam: 09:56 Constitutional: This is a well developed, well nourished patient who is awake, alert, ci and in no acute distress. Head/Face: Normocephalic, atraumatic. Eyes: Pupils equal round and reactive to light, extra-ocular motions intact. Lids and lashes normal. Conjunctiva and sclera are non-icteric and not injected. Cornea within normal limits. Periorbital areas with no swelling, redness, or edema. ENT: Nares patent. No nasal discharge, no septal abnormalities noted. Tympanic membranes are normal and external auditory canals are clear. Oropharynx with mild redness. No swelling, or masses, exudates, or evidence of obstruction, uvula midline. Mucous membranes moist. Neck: Trachea midline, no thyromegaly or masses palpated, and no cervical lymphadenopathy. Supple, full range of motion without nuchal rigidity, or vertebral point tenderness. No Meningismus. Chest/axilla: Normal chest wall appearance and motion. Nontender with no deformity. No lesions are appreciated. Cardiovascular: Regular rate and rhythm with a normal S1 and S2. No gallops, murmurs, or rubs. Normal PMI, no JVD. No pulse deficits. Respiratory: Lungs have equal breath sounds bilaterally, clear to auscultation and percussion. No rales, rhonchi or wheezes noted. No increased work of breathing, no retractions or nasal flaring. Abdomen/GI: Soft, non-tender, with normal bowel sounds. No distension or tympany. No guarding or rebound. No evidence of tenderness throughout. Back: No spinal tenderness. No costovertebral tenderness. Full range of motion. Skin: Warm, dry with normal turgor. Normal color with no rashes, no lesions, and no evidence of cellulitis. MS/ Extremity: Pulses equal, no cyanosis. Neurovascular intact. Full, normal range of motion. Neuro: Awake and alert, GCS 15, oriented to person, place, time, and situation. Cranial nerves II-XII grossly intact. Motor strength 5/5 in all extremities. Sensory grossly intact. Cerebellar exam normal. Normal gait. Psych: Awake, alert, with orientation to person, place and time. Behavior, mood, and affect are within normal limits. Vital Signs: 09:37 BP 151 / 91; Pulse 78; Resp 16; Temp 98.6; Pulse Ox 96% on R/A; iw MDM: 09:40 Patient medically screened. ci 09:56 Differential Diagnosis flu, URI, PNA, OM, PHARYNGITIS. Data reviewed: vital signs, ci nurses notes, old medical records. 10:10 Special discussion: I have referred the patient to see his PCP for further evaluation ci of high blood pressure. ED course: Patient arrives to the ED hemodynamically stable and in no acute distress. Oropharynx slightly erythematous, no COLOR CHECKER. She denies any cough, denies shortness of breath, chest pain, low suspicion for pneumonia. Will obtain viral swabs, strep swab.. ED course: Patient arrives to the ED hemodynamically stable and in no acute distress. Neck is supple, no meningismus. Oropharynx slightly erythematous, no COLOR CHECKER. She denies any cough, denies shortness of breath, chest pain, low suspicion for pneumonia. Will obtain viral swabs, strep swab. . 10:56 Counseling: I had a detailed discussion with the patient and/or guardian regarding the ci historical points, exam findings, and any diagnostic results supporting the discharge/admit diagnosis, the presence of at least one elevated blood pressure reading (>120/80) during this emergency department visit, lab results, the need for outpatient follow up, to return to the emergency department if symptoms worsen or persist or if there are any questions or concerns that arise at home. Consent for treatment: Risk, benefits, and alternatives discussed with Pt/guardian concerning: Paxlovid prescription. ED course: Patient is COVID-positive. Discussed isolation per precautions. Paxlovid indication, contraindications and interactions discussed with patient. Patient denies any daily medications, denies any medical problems and consents to Paxlovid. Instructed to follow-up with PCP return to the ED for shortness of breath, chest pain, any new or concerning symptoms.. 11/09 09:49 Order name: Strep ci 11/09 09:56 Order name: SARS RAPID; Complete Time: 10:44 db 11/09 10:44 Interpretation: Abnormal: SARS RESULT Positive. ci 11/09 09:56 Order name: Flu; Complete Time: 10:44 db 11/09 10:31 Order name: Throat Culture EDMS Administered Medications: No medications were administered Disposition Summary: 11/09/23 10:46 Discharge Ordered Notes: Location: Home ci Condition: Stable ci Diagnosis - SARS-associated coronavirus as the cause of diseases classified elsewhere - COVID-19ci Followup: ci - With: Private Physician - When: 1 - 2 days - Reason: Recheck today's complaints, Re-evaluation by your physician Discharge Instructions: - Discharge Summary Sheet ci - COVID-19 ci - How to Protect Yourself and Others - [facility] (12/17/2021) ci - 10 Things You Can Do to Manage Your COVID-19 Symptoms at Home - [facility] (05/07/2021) ci - Viral Illness, Adult ci - COVID-19: Quarantine and Isolation - [facility] (01/19/2022) ci Forms: - Work release form iw - Medication Reconciliation Form ci - Thank You Letter ci - Antibiotic Education ci - Prescription Opioid Use ci - Patient Portal Instructions ci - Leadership Thank You Letter ci Prescriptions: - Paxlovid 300 mg (150 mg x 2)-100 mg Oral Tablet, Dose Pack - take 1 dose pack ORAL route per package directions; 1 Pack; Refills: 0, Product ci Selection Permitted Signatures: Dispatcher [employer] Rosita Beltre, RN RN John Xie ci Corrections: (The following items were deleted from the chart) 09:39 09:38 Home Meds: Unable to obtain; iw iw 10:04 09:49 COVID-19/FLU A+B/RSV+MOL.LAB.BRZ ordered. EDDE EDMS
--- NOTE | 2023-11-09 10:46 | ER ---
Nurse's Notes [facility] Name: Cari Chen Age: 48 yrs Sex: Female : 1975 Arrival Date: 11/09/2023 Time: 09:32 Bed 5 Private MD: Diagnosis: SARS-associated coronavirus as the cause of diseases classified [id number] Presentation: 11/09 09:37 Chief complaint: Patient states: congested,. light headed, sore throat , has had it for iw a couple days, her grand children have strep throat. Coronavirus screen: Client presents with at least one sign or symptom that may indicate coronavirus-19. Ebola Screen: Patient negative for fever greater than or equal to 101.5 degrees Fahrenheit, and additional compatible Ebola Virus Disease symptoms Patient denies exposure to infectious person. Patient denies travel to an Ebola-affected area in the 21 days before illness onset. No symptoms or risks identified at this time. Initial Sepsis Screen: Does the patient meet any 2 criteria? No. Patient's initial sepsis screen is negative. Does the patient have a suspected source of infection? No. Patient's initial sepsis screen is negative. Risk Assessment: Do you want to hurt yourself or someone else?. Onset of symptoms was November 07, 2023. 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 - Social history:: Smoking status: Patient denies any tobacco usage or history of. Screenin:58 [facility] ED Fall Risk Assessment (Adult) Score/Fall Risk Level 0 - 2 = Low Risk. Abuse iw screen: Denies threats or abuse. Denies injuries from another. Nutritional screening: No deficits noted. Tuberculosis screening: No symptoms or risk factors identified. Assessment: 10:58 Reassessment: Patient appears in no apparent distress at this time. Patient and/or iw family updated on plan of care and expected duration. Pain level reassessed. Patient is alert, oriented x 3, equal unlabored respirations, skin warm/dry/pink. Vital Signs: 09:37 BP 151 / 91; Pulse 78; Resp 16; Temp 98.6; Pulse Ox 96% on R/A; iw ED Course: 09:35 Patient arrived in ED. rg4 09:38 Triage completed. iw 09:39 John Xie is Attending Physician. ci 09:39 Arm band placed on. iw 09:40 Connie Colby, RN is Primary Nurse. db 10:58 No provider procedures requiring assistance completed. Patient did not have IV access iw during this emergency room visit. Administered Medications: No medications were administered Medication: 10:58 VIS not applicable for this client. iw Outcome: 10:46 Discharge ordered by MD. ci 10:58 Discharged to home ambulatory, iw 10:58 Condition: good 10:58 Discharge instructions given to patient, Instructed on discharge instructions, follow up and referral plans. Demonstrated understanding of instructions, follow-up care, medications, Prescriptions given X 1, 10:58 Patient left the ED. iw Signatures: Rosita Carter, RN RN Bridgette Echavarria rg4 Connie Colby, RN RN John Xie ci Corrections: (The following items were deleted from the chart) 09:39 09:38 Home Meds: Unable to obtain; iw iw
[2023-11-09 12:29] VITALS: BP 151/91; TEMP 98.6; O2SAT 96
== END ==
LOC: ER 09:32
DX: U07.1 COVID-19 (principal)
CPT/HCPCS: 36415; 87070; 87081; 87804; 87811; 99283

== ENCOUNTER → 2023-11-21 | Emergency (ER) | payer SELFPAY ==
[2023-11-21 22:42] LABS: SARS-CoV-2 Antigen Rapid Res Negative (Negative)
[2023-11-21 22:42] LABS: Absolute Lymphocytes (CBC) 0.5 K/uL (0.7-4.9); Hematocrit 37.1 % (36.0-45.0); Lymphocytes % 10.2 % (15.3-44.8); MCV 82.2 fL (80-100); Platelets 253 thou/uL (152-406); RBC Red Blood Cell Count 4.52 M/uL (3.86-4.86)
[2023-11-21 22:57] LABS: Potassium 3.5 mEq/L (3.5-5.1)
--- NOTE | 2023-11-21 23:43 | EDPHYS ---
Physician Documentation [facility] Name: Cari Chen Age: 48 yrs Sex: Female : 1975 Arrival Date: 11/21/2023 Time: 21:57 Bed DX3 Private MD: ED Physician Rudy Ness HPI: 11/21 23:45 This 48 yrs old Female presents to ER via Ambulatory with complaints of General kb Weakness, Dizziness, BODY ACHES/PAINS. 23:45 Pt is a 48 year old female who presents for bodyaches and weakness. States she tested kb positive for covid last week and wants to know if she still has it or if this is something else. . Historical: - Allergies: 22:06 No Known Allergies; tl4 - Home Meds: 22:06 None [Active]; tl4 - PMHx: 22:06 None; tl4 - PSHx: 22:06 None; tl4 - Immunization history:: Adult Immunizations unknown. - Social history:: Smoking status: Patient denies any tobacco usage or history of. ROS: 23:47 Abdomen/GI: Negative for abdominal pain, nausea, vomiting, diarrhea, and constipation, kb 23:47 Constitutional: Positive for body aches, malaise, 23:47 Respiratory: Positive for cough, 23:47 Neuro: Positive for weakness, 23:47 All other systems are negative, Exam: 23:47 Constitutional: This is a well developed, well nourished patient who is awake, alert, kb and in no acute distress. Head/Face: Normocephalic, atraumatic. ENT: Moist Mucous membranes Cardiovascular: Regular rate Respiratory: Respirations even and unlabored. No increased work of breathing. Talking in full sentences Abdomen/GI: Soft, non-tender. No distention Skin: Warm, dry with normal turgor. Normal color. MS/ Extremity: Pulses equal, no cyanosis. Neurovascular intact. Full, normal range of motion. Neuro: Awake and alert, GCS 15, oriented to person, place, time, and situation. Moves all extremities. Normal gait. Vital Signs: 22:04 BP 118 / 79; Pulse 89; Resp 18; Temp 99.5(O); Pulse Ox 100% ; Weight 81.65 kg; Height 5 tl4 ft. 7 in. ; Pain 7/10; 22:04 Body Mass Index 28.19 (81.65 kg, 170.18 cm) tl4 22:04 Pain Scale: Adult tl4 MDM: 21:58 Patient medically screened. kb 11/22 00:07 Differential diagnosis: flu, covid, uri, dehydration. Data reviewed: vital signs, kb nurses notes. Counseling: I had a detailed discussion with the patient and/or guardian regarding the historical points, exam findings, and any diagnostic results supporting the discharge/admit diagnosis, lab results, the need for outpatient follow up, a family practitioner, to return to the emergency department if symptoms worsen or persist or if there are any questions or concerns that arise at home. 11/21 22:03 Order name: CBC with Diff; Complete Time: 22:43 kb 11/21 22:03 Order name: Basic Metabolic Panel; Complete Time: 23:01 kb 11/21 22:03 Order name: SARS-COV-2 Antigen Rapid; Complete Time: 22:43 kb 11/21 22:03 Order name: Flu; Complete Time: 23:40 kb 11/21 22:03 Order name: IV Start; Complete Time: 22:23 kb Administered Medications: No medications were administered Disposition: 00:41 Co-signature as Attending Physician, Rudy Ness MD I agree with the assessment sp4 and plan of care. I reviewed the patient's care provided by the Advanced Practice Provider and agree with the diagnosis and treatment plan. Disposition Summary: 11/21/23 23:42 Discharge Ordered Notes: Location: Home kb Condition: Stable kb Diagnosis - Acute upper respiratory infection, unspecified kb Followup: kb - With: Emergency Department - When: As needed - Reason: Worsening of condition Followup: kb - With: Private Physician - When: 2 - 3 days - Reason: Recheck today's complaints, Continuance of care, Re-evaluation by your physician Discharge Instructions: - Discharge Summary Sheet kb - Upper Respiratory Infection, Adult, [id number] kb Forms: - Medication Reconciliation Form kb - Thank You Letter kb - Antibiotic Education kb - Prescription Opioid Use kb - Patient Portal Instructions kb - Leadership Thank You Letter kb Signatures: Dispatcher [employer] Landy Elise, PREM ARMENTA-Rudy Kevin MD MD sp4 Logdahl, Andres tl4
--- NOTE | 2023-11-21 23:43 | ER ---
Nurse's Notes [facility] Name: Cari Chen Age: 48 yrs Sex: Female : 1975 Arrival Date: 11/21/2023 Time: 21:57 Bed DX3 Private MD: Diagnosis: Acute upper respiratory infection, unspecified Presentation: 11/21 22:04 Chief complaint: Patient states: Pt c/o body aches, cough, runny nose and feeling tl4 lightheaded since last night. Coronavirus screen: Vaccine status: Patient reports being unvaccinated. Ebola Screen: No symptoms or risks identified at this time. Initial Sepsis Screen: Does the patient meet any 2 criteria? No. Patient's initial sepsis screen is negative. Does the patient have a suspected source of infection? No. Patient's initial sepsis screen is negative. Risk Assessment: Do you want to hurt yourself or someone else? Patient reports no desire to harm self or others. Onset of symptoms was November 20, 2023. 22:04 Method Of Arrival: Ambulatory tl4 22:04 Acuity: VALERIE 3 tl4 Triage Assessment: 22:06 General: Appears uncomfortable, ill, Behavior is calm, cooperative. Pain: Complains of tl4 pain in pain all over. EENT: No deficits noted. No signs and/or symptoms were reported regarding the EENT system. Neuro: Reports headache. Cardiovascular: Reports lightheadedness, Denies chest pain, diaphoresis, fatigue. Respiratory: Reports shortness of breath cough that is. GI: No deficits noted. No signs and/or symptoms were reported involving the gastrointestinal system. : No deficits noted. No signs and/or symptoms were reported regarding the genitourinary system. Derm: No deficits noted. No signs and/or symptoms reported regarding the dermatologic system. Historical: - Allergies: 22:06 No Known Allergies; tl4 - Home Meds: 22:06 None [Active]; tl4 - PMHx: 22:06 None; tl4 - PSHx: 22:06 None; tl4 - Immunization history:: Adult Immunizations unknown. - Social history:: Smoking status: Patient denies any tobacco usage or history of. Screenin:23 [facility] ED Fall Risk Assessment (Adult) History of falling in the last 3 months, tl4 including since admission No falls in past 3 months (0 pts) Confusion or Disorientation No (0 pts) Intoxicated or Sedated No (0 pts) Impaired Gait No (0 pts) Mobility Assist Device Used No (0 pt) Altered Elimination No (0 pt) Score/Fall Risk Level 0 - 2 = Low Risk. Abuse screen: Denies threats or abuse. Denies injuries from another. Nutritional screening: No deficits noted. Tuberculosis screening: No symptoms or risk factors identified. Assessment: 22:22 Reassessment: No changes from previously documented assessment. Patient and/or family tl4 updated on plan of care and expected duration. Pain level reassessed. Patient is alert, oriented x 3, equal unlabored respirations, skin warm/dry/pink. Vital Signs: 22:04 BP 118 / 79; Pulse 89; Resp 18; Temp 99.5(O); Pulse Ox 100% ; Weight 81.65 kg; Height 5 tl4 ft. 7 in. ; Pain 7/10; 22:04 Body Mass Index 28.19 (81.65 kg, 170.18 cm) tl4 22:04 Pain Scale: Adult tl4 ED Course: 21:57 Patient arrived in ED. jj6 21:58 Land[facility] Mcfadden [facility]C [facility]. kb 21:58 Rudy Ness MD is Attending Physician. kb 22:05 Triage completed. tl4 22:05 Arm band placed on right wrist. tl4 22:10 Flu Sent. tl4 22:10 SARS-COV-2 Antigen Rapid Sent. tl4 22:23 Patient has correct armband on for positive identification. Provided Education on: ed tl4 process. Warm blanket given. 22:23 No provider procedures requiring assistance completed. tl4 22:23 Inserted saline lock: 20 gauge in right antecubital area, using aseptic technique. tl4 Blood collected. 22:23 Basic Metabolic Panel Sent. tl4 22:23 CBC with Diff Sent. tl4 23:54 IV discontinued, intact, bleeding controlled, No redness/swelling at site. Pressure vc1 dressing applied. Administered Medications: No medications were administered Medication: 22:22 VIS not applicable for this client. tl4 Outcome: 23:42 Discharge ordered by . kb 23:54 Discharged to home ambulatory, vc1 23:54 Condition: good 23:54 Discharge instructions given to patient, Instructed on discharge instructions, follow up and referral plans. Demonstrated understanding of instructions, follow-up care, 23:56 Patient left the ED. vc1 Signatures: Landy Mcfadden, YOGIC KATHI-Negin Jara jj6 Madison Brown RN RN vc1 Andres Mills tl4
[2023-11-22 11:56] VITALS: BP 118/79; TEMP 99.5; O2SAT 100
== END ==
LOC: ER 21:57
DX: J06.9 Acute upper respiratory infection, unspecified (principal); Z11.52 Encounter for screening for COVID-19
CPT/HCPCS: 36415; 80048; 85025; 87804; 87811